=== PATIENT | female | born 1955 | race Caucasian/White ===

== ENCOUNTER 2016-12-19 12:59 | Emergency (ER) | payer MEDICARE, OTHER ==
[2016-12-19 15:34] LABS: BASO % 0.3 % (0.1-1.2); EOS # 0.2 10_X3_uL (0.0-0.4); EOS % 1.8 % (0.7-5.8); GRAN # 7.5 10_X3_uL (1.6-6.1); GRAN % 70.3 % (34.0-71.1); HEMATOCRIT 40.6 % (34-45); HEMOGLOBIN 13.2 g/dL (11.2-15.7); LYMPH # 2.2 10_X3_uL (1.2-3.7); LYMPH % 20.5 % (19.3-51.7); MEAN CORPUSCULAR HEMOGLOBIN 26.2 pg (27.0-33.0); MEAN CORPUSCULAR HGB CONC 32.5 g/dL (32.0-36.0); MEAN CORPUSCULAR VOLUME 80.7 fL (79-95); MEAN PLATELET VOLUME 9.5 fl (7.5-11.5); MONO # 0.8 10_X3_uL (0.2-0.9); MONO % 7.1 % (4.7-12.5); PLATELET COUNT 283 x10_3/uL (182-369); RED BLOOD COUNT 5.03 x10_6/uL (3.9-5.2); RED CELL DISTRIBUTION WIDTH 14.5 % (11.7-14.4); WHITE BLOOD COUNT 10.7 x10_3/uL (4.0-10.0)
[2016-12-19 15:48] LABS: ALBUMIN 3.2 gm/dL (3.4-5.0); BILIRUBIN,TOTAL 0.29 mg/dL (0.0-1.0); CALCIUM 8.5 mg/dL (8.7-10.7); POTASSIUM 4.3 mmol/L (3.5-5.1); TOTAL PROTEIN 6.9 gm/dL (6.4-8.2)
== END 2016-12-19 18:05 | disposition home or self-care (01) ==
LOC: ER 12:59
PROVIDERS: Family Medicine
DX: R00.2 Palpitations (principal); R79.89 Other specified abnormal findings of blood chemistry; E86.0 Dehydration; E11.9 Type 2 diabetes mellitus without complications; J44.9 Chronic obstructive pulmonary disease, unspecified; Z90.710 Acquired absence of both cervix and uterus; F17.210 Nicotine dependence, cigarettes, uncomplicated; Z88.2 Allergy status to sulfonamides; Z79.899 Other long term (current) drug therapy; Z79.84 Long term (current) use of oral hypoglycemic drugs
CPT/HCPCS: 36415; 71010; 80053; 82550; 82553; 85025; 87400; 93005; 96360; 99283; 99285-25